=== PATIENT | male | born 1940 | race Caucasian/White ===

== ENCOUNTER 2016-04-04 11:22 | Inpatient (IN) | payer OTHER ==
[~2016-04-04] VITALS: Ht 182.9 cm; Wt 96.1 kg
[~2016-04-04 11:22] MED LIST: ALDACTONE25 MG PO; AMIODARONE HCL200 MG PO; ANTIVERT25 MG PO; ASPIRIN325 MG PO; CRESTOR40 MG PO; FENOFIBRATE160 M1; LASIX40 MG PO; METOPROLOL TAR100 MG PO; MYSOLINE50 MG PO; PLAVIX75 MG PO; PRIMIDONE50 MG PO; ROPINIROLE HCL0.5 MG PO; TAMSULOSIN HCL0.4 MG PO; ZYRTEC10 M2 PO
[2016-04-04 13:12] LABS: EOSINOPHIL (%) 0.5 % (0-5); EOSINOPHIL COUNT 0.1 K/uL (0-0.3); HEMATOCRIT 45.8 % (38.0-50.0); IMMATURE GRANULOCYTE (%) 0.3 % (0.0-0.7); IMMATURE GRANULOCYTE COUNT 0.3 K/uL; LYMPHOCYTE COUNT 0.7 K/uL (1.0-2.8); MCHC 34.1 G/DL (30.0-36.0); MCV 90.9 FL (86-99); MEAN PLAT.VOLUME 11.4 uM^3 (9.0-12.4); NEUTROPHIL (%) 82.5 % (45-76); NEUTROPHIL COUNT 8.3 K/uL (1.8-6.4); PLATELET COUNT 123 K/uL (156-360); RBC DIS.WIDTH-CV 14.4 % (11.8-14.6); RBC DIS.WIDTH-SD 46.7 % (39-53); RED BLOOD COUNT 5.04 M/uL (4.00-5.50); WHITE BLOOD COUNT 10.1 K/uL (4.1-10.2)
[2016-04-04 13:15] LABS: ADD MIUA? YES; BILIRUBIN NEGATIVE; BLOOD LARGE; COLOR DK YELLOW ((YELLOW)); GLUCOSE (STRIP) NEGATIVE; KETONES NEGATIVE; LEUKOCYTES MODERATE; NITRITE POSITIVE; PH, URINE 6.5 (5-8); PROTEIN (STRIP) 100; SPECIFIC GRAVITY 1.018 (1.000-1.030)
[2016-04-04 13:26] LABS: CHLORIDE 102 mEq/L (99-109); POTASSIUM 4.1 mEq/L (3.7-5.4); SODIUM 137 mEq/L (136-147)
[2016-04-04 13:29] LABS: GLUCOSE 100 mg/dL (70-99)
[2016-04-04 13:30] LABS: ANION GAP 9 MEQ/L (2-14)
[2016-04-04 13:31] LABS: TOTAL BILIRUBIN 0.7 mg/dL (0.0-1.0)
[2016-04-04 13:32] LABS: ALKALINE PHOSPHATASE 58 IU/L (3-129); GFR ESTIMATE (CALCULATED) 45 mL/min/
[2016-04-04 13:33] LABS: UREA NITROGEN (BUN) 25 mg/dL (9-23)
[2016-04-04 13:35] LABS: CREATINE KINASE 150 IU/L (1-294)
[2016-04-04 13:45] LABS: EPITHELIAL CELLS 1+
[2016-04-04 13:46] LABS: BACTERIA 2+; CASTS NONE SEEN /LPF; CRYSTALS NONE SEEN; MUCUS NONE SEEN; UCUL ADDED? YES; WHITE BLOOD CELLS 30-40 /HPF (0-5)
[2016-04-04 13:59] LABS: ERTH.SED.RATE 42 MM/HR (0-20)
[2016-04-04] MEDS ORDERED: MYSOLINE50 MG PO (16:00)
[2016-04-04] MEDS ORDERED: AMIODARONE HCL100 MG PO (16:02)
[2016-04-04] MEDS ORDERED: GLIPIZIDE XL10 MG PO (16:02)
[2016-04-04] MEDS ORDERED: TRADJENTA5 MG PO (16:03)
[2016-04-04 18:34] LABS: TROP-I INTERPRETATION NEGATIVE; TROPONIN-I 0.06 ng/mL (0.0-0.30)
[2016-04-04 22:35] VITALS: BP 143/68
[2016-04-05 00:51] LABS: TROP-I INTERPRETATION NEGATIVE; TROPONIN-I 0.06 ng/mL (0.0-0.30)
[2016-04-05 04:00] VITALS: BP 138/82
[2016-04-05 06:22] LABS: HEMATOCRIT 43.1 % (38.0-50.0); MCH 31.6 PG (29.0-34.0); MCHC 34.1 G/DL (30.0-36.0); MCV 92.7 FL (86-99); MEAN PLAT.VOLUME 11.6 uM^3 (9.0-12.4); PLATELET COUNT 120 K/uL (156-360); RBC DIS.WIDTH-CV 14.4 % (11.8-14.6); RBC DIS.WIDTH-SD 48.8 % (39-53); RED BLOOD COUNT 4.65 M/uL (4.00-5.50)
[2016-04-05 06:24] LABS: WHITE BLOOD COUNT 6.1 K/uL (4.1-10.2)
[2016-04-05 06:47] LABS: Estimated Average Glucose 137 mg/dL (70-123); HEMOGLOBIN A1c (GLYCOHEMOGLOB) 6.4 % HGB (Below 5.7)
[2016-04-05 06:58] LABS: ANION GAP 6 MEQ/L (2-14); CHLORIDE 106 MEQ/L (99-109); GFR ESTIMATE (CALCULATED) 49 mL/min/; GLUCOSE 111 mg/dL (70-99); HDL CHOLESTEROL 27 MG/DL (Desirable>=40); LDL CHOLESTEROL 35 mg/dL (Desirable<100); NON-HDL CHOLESTEROL 53 mg/dL (Desirable<160); POTASSIUM 3.6 MEQ/L (3.7-5.4); SAMPLE HEMOLYSIS CHECK 0; SAMPLE ICTERIC CHECK 0; SAMPLE LIPEMIA CHECK 0; SODIUM 138 MEQ/L (136-147); TOTAL CHOLESTEROL 80 mg/dL (Desirable<200); TRIGLYCERIDES 92 MG/DL (Normal: <150); UREA NITROGEN (BUN) 21 mg/dL (9-23)
[2016-04-05 07:01] LABS: TROP-I INTERPRETATION NEGATIVE; TROPONIN-I 0.05 ng/mL (0.0-0.30)
[2016-04-05 08:31] VITALS: BP 143/92; BP 159/90
[2016-04-05 12:46] VITALS: BP 148/89
[2016-04-05 17:29] VITALS: BP 143/86
[2016-04-05 20:00] VITALS: BP 171/96
[2016-04-06 00:15] VITALS: BP 106/56
[2016-04-06 01:46] LABS: INTERNAL CONTROL VALID? YES
[2016-04-06 02:07] LABS: C DIFF TOXIN NEGATIVE (NEGATIVE)
[2016-04-06 02:08] LABS: PROBE CHECK PASS; SPECIMEN PROCESSING CONTROL PASS
[2016-04-06 04:00] VITALS: BP 134/75
[2016-04-06 11:56] VITALS: BP 159/92
[2016-04-06 16:03] VITALS: BP 174/92; BP 177/98
[2016-04-06 19:59] VITALS: BP 152/87
[2016-04-06 23:43] VITALS: BP 166/101
[2016-04-07] VITALS (7 sets, daily range): BP systolic 145–188; BP diastolic 78–97
[2016-04-07 06:43] LABS: ANION GAP 13 MEQ/L (2-14); CHLORIDE 104 MEQ/L (99-109); GFR ESTIMATE (CALCULATED) > 59 mL/min/; GLUCOSE 133 mg/dL (70-99); POTASSIUM 3.7 MEQ/L (3.7-5.4); SAMPLE HEMOLYSIS CHECK 0; SAMPLE ICTERIC CHECK 0; SAMPLE LIPEMIA CHECK 0; SODIUM 138 MEQ/L (136-147); UREA NITROGEN (BUN) 19 mg/dL (9-23)
[2016-04-07 08:04] LABS: POINT-OF-CARE METER ID UU14149397
[2016-04-08 04:11] VITALS: BP 152/77
[2016-04-08 06:19] LABS: HEMATOCRIT 45.9 % (38.0-50.0); MCH 30.1 PG (29.0-34.0); MCHC 33.6 G/DL (30.0-36.0); MCV 89.6 FL (86-99); MEAN PLAT.VOLUME 11.1 uM^3 (9.0-12.4); RBC DIS.WIDTH-CV 14.1 % (11.8-14.6); RBC DIS.WIDTH-SD 46.4 % (39-53); RED BLOOD COUNT 5.12 M/uL (4.00-5.50)
[2016-04-08 06:21] LABS: PLATELET COUNT 161 K/uL (156-360); WHITE BLOOD COUNT 8.6 K/uL (4.1-10.2)
[2016-04-08 08:35] VITALS: BP 166/74
[2016-04-08 09:18] LABS: ANION GAP 5 MEQ/L (2-14); CHLORIDE 100 MEQ/L (99-109); POTASSIUM 3.8 MEQ/L (3.7-5.4); SAMPLE HEMOLYSIS CHECK 0; SAMPLE ICTERIC CHECK 0; SAMPLE LIPEMIA CHECK 0; SODIUM 133 MEQ/L (136-147)
[2016-04-08 09:23] LABS: GFR ESTIMATE (CALCULATED) > 59 mL/min/; GLUCOSE 152 mg/dL (70-99); UREA NITROGEN (BUN) 18 mg/dL (9-23)
[2016-04-08 11:30] VITALS: BP 159/81
[2016-04-08] MEDS ORDERED: Thiamine,Vitamin B1 PO (13:27)
[2016-04-08] MEDS ORDERED: CEFTIN500 MG PO (13:27)
[2016-04-08] MEDS ORDERED: FOLIC ACID1 MG PO (13:27)
[2016-04-08] MEDS ORDERED: ROBITUSSIN100 MG/5 M PO (13:28)
== END 2016-04-08 14:45 | disposition home or self-care (01) | DRG 871 ==
LOC: EME 11:22 → EDOF 16:46 → 3EAST 22:00
PROVIDERS: Emergency Medicine; Hospitalist; Internal Medicine; Physician Assistant; Student in an Organized Health Care Education/Training Program
DX: A41.89 Other specified sepsis (principal); J18.9 Pneumonia, unspecified organism; N17.9 Acute kidney failure, unspecified; N39.0 Urinary tract infection, site not specified; E11.22 Type 2 diabetes mellitus with diabetic chronic kidney disease; D69.6 Thrombocytopenia, unspecified; R19.7 Diarrhea, unspecified; R29.6 Repeated falls; N18.9 Chronic kidney disease, unspecified; N40.1 Benign prostatic hyperplasia with lower urinary tract symptoms; I12.9 Hypertensive chronic kidney disease with stage 1 through stage 4 chronic kidney disease, or unspecified chronic kidney disease; I25.10 Atherosclerotic heart disease of native coronary artery without angina pectoris; Z95.1 Presence of aortocoronary bypass graft; Z95.5 Presence of coronary angioplasty implant and graft; Z95.810 Presence of automatic (implantable) cardiac defibrillator; E78.5 Hyperlipidemia, unspecified; Z79.84 Long term (current) use of oral hypoglycemic drugs; R33.9 Retention of urine, unspecified; E87.6 Hypokalemia; F17.210 Nicotine dependence, cigarettes, uncomplicated
CPT/HCPCS: 70450; 71010; 71020; 72125; 72131; 74176; 80048; 80053; 80061; 81003; 82550; 82948; 83036; 83605; 83630; 83735; 84484; 85025; 85027; 85651; 87040; 87077; 87086; 87177; 87186; 87493; 87506; 94010; 94640; 94760; 99202; 99281; 99285; J0696; J1650; J3370; J7030; J7050